=== PATIENT | male | born 1955 | race Caucasian/White ===

== ENCOUNTER 2021-04-28 15:15 | Outpatient (CLI) | payer MEDICARE, OTHER, SELFPAY ==
[2021-04-28 15:31] VITALS: BP 133/82; PULSE 81; TEMP 37.2; O2SAT 96
[2021-04-28 16:01] VITALS: BP 128/87; PULSE 77; O2SAT 98
[2021-04-28 16:17] VITALS: BP 126/86; PULSE 71; O2SAT 97
[2021-04-28 17:03] VITALS: BP 130/79; PULSE 88; O2SAT 98
== END 2021-04-28 17:09 | disposition home or self-care (01) ==
LOC: OPS 15:21
PROVIDERS: PCP Family Medicine; Visit Provider Family Medicine
DX: U07.1 COVID-19 (principal)
CPT/HCPCS: 96365

== ENCOUNTER → 2022-08-09 15:33 | Outpatient (BNVA) | payer MEDICARE, OTHER, SELFPAY | PROVIDERS: PCP Family Medicine; Visit Provider Family Medicine | DX: R97.20 Elevated prostate specific antigen [PSA] (principal) | CPT/HCPCS: 84153 ==

== ENCOUNTER → 2023-06-20 14:43 | Outpatient (BNVA) | payer MEDICARE, OTHER, SELFPAY | PROVIDERS: PCP Family Medicine; Visit Provider Family Medicine | DX: K57.20 Diverticulitis of large intestine with perforation and abscess without bleeding (principal); Z00.00 Encounter for general adult medical examination without abnormal findings | CPT/HCPCS: 80053; 85025; 86140 ==

== ENCOUNTER → 2023-07-11 14:57 | Outpatient (BNVA) | payer MEDICARE, OTHER, SELFPAY | PROVIDERS: PCP Family Medicine; Visit Provider Family Medicine | DX: R00.0 Tachycardia, unspecified (principal); K57.20 Diverticulitis of large intestine with perforation and abscess without bleeding; Z00.00 Encounter for general adult medical examination without abnormal findings | CPT/HCPCS: 80053; 83735; 83880; 84443; 85025; 86140 ==

== ENCOUNTER → 2023-08-08 15:31 | Outpatient (BNVA) | payer MEDICARE, OTHER, SELFPAY | PROVIDERS: PCP Family Medicine; Visit Provider Family Medicine | DX: R50.9 Fever, unspecified (principal) | CPT/HCPCS: 80053; 85025; 86140 ==

== ENCOUNTER → 2024-04-25 12:06 | Outpatient (BNVA) | payer MEDICARE, OTHER, SELFPAY | PROVIDERS: PCP Family Medicine; Visit Provider Family Medicine | DX: E11.9 Type 2 diabetes mellitus without complications (principal); Z00.00 Encounter for general adult medical examination without abnormal findings; R53.83 Other fatigue; R97.20 Elevated prostate specific antigen [PSA] | CPT/HCPCS: 80053; 80061; 83880; 84153; 84443; 85025; 86140 ==

== ENCOUNTER 2024-12-15 10:57 | Inpatient (IN) | payer MEDICARE, OTHER, SELFPAY ==
[2024-12-15] VITALS (30 sets, daily range): BP systolic 106–167; BP diastolic 76–98; PULSE 57–124; RESP 11–24; TEMP 36.4–36.8; O2SAT 87–97; BMI 29.2
--- NOTE | 2024-12-15 11:06 | ECG_ITS ---
[employer] Test Date: 2024-12-15 Pat Name: Yuriy Martinez Department: Room: Gender: Male Relationship Advisor: : 1955 Requested By: Pepe Briseno Order Number: [id number] Janice MD: Donald Logan M.D. Measurements Intervals [place] Rate: 122 P: 0 [place]: 0 QRS: -46 QRSD: 92 T: 55 QT: 296 QTc: 422 Interpretive Statements ATRIAL FIBRILLATION WITH RAPID VENTRICULAR RESPONSE WITH ABERRANT CONDUCTION OR VENTRICULAR PREMATURE COMPLEXES PATTERN CONSISTENT WITH PULMONARY DISEASE LEFT ANTERIOR FASCICULAR BLOCK [QRS AXIS <= -45, QR IN I, RS IN II] MINIMAL VOLTAGE CRITERIA FOR LVH, CONSIDER NORMAL VARIANT [MEETS CRITERIA IN ONE OF: R(aVL), S(V1), R(V5), R(V5/V6)+S(V1)] Compared to ECG 12/22/2017 17:47:10 Ventricular premature complex(es) now present Aberrant conduction of supraventricular beat(s) now present Left anterior fascicular block now present Sinus bradycardia no longer present Electronically Signed On 12-15-2024 14:42:06 CDT by Donald Logan M.D. [email or web address] [id number]
--- NOTE | 2024-12-15 11:32 | XRR_ITS ---
PROCEDURE INFORMATION: Exam: XR Chest Exam date and time: 12/15/2024 12:03 PM Age: 69 years old Clinical indication: Shortness of breath; New onset afib; SOB TECHNIQUE: Imaging protocol: Radiologic exam of the chest. Views: 2 views. COMPARISON: CR XR acute abdomen series [id number] 12/23/2017 6:16 AM FINDINGS: Lungs: Unremarkable. No consolidation. Pleural spaces: Unremarkable. No pleural effusion. No pneumothorax. Heart/Mediastinum: Unremarkable. No cardiomegaly. Vasculature: There is unfolding of the thoracic aorta. There are aortic arch calcifications. Bones/joints: Mild degenerative disease of bilateral acromioclavicular joints. The thoracic spine demonstrates moderate degenerative changes at multiple levels. XR/XR chest 2V* [id number] IMPRESSION: No acute cardiopulmonary process.
[2024-12-15 11:44] LABS: Basophils % 0.5 %; Eosinophils % 0.3 %; Hematocrit 43.5 % (37-53); Lymphocytes # 1.5 10^3/uL (0.8-4.8); Lymphocytes % 16.5 %; Mean Corpuscular HGB Conc 34.7 g/dL (30-55); Mean Corpuscular Hemoglobin 30.5 pg (27-33); Mean Corpuscular Volume 87.9 fl (82-101); Mean Platelet Volume 10.8 fL (7.4-10.4); Monocytes # 0.7 10^3/uL (0.2-0.9); Monocytes % 7.4 %; Neutrophils # 6.58 10^3/uL (1.8-7.7); Neutrophils % 75.1 %; Nucleated Red Blood Cells % 0 %; Platelet Count 257 10^3/cmm (157-399); Red Blood Count 4.95 10^6/uL (3.85-5.65); Red Cell Distribution Width 11.9 % (12.1-15.1); White Blood Count 8.77 10^3/uL (3.29-11.43)
--- NOTE | 2024-12-15 11:48 | W.ED.DIZZY ---
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 The patient denies any chest pain does not report any current palpitations reports no leg swelling or any other associated symptoms. Associated symptoms: Reports palpitations; Denies chest pain, chills, headache(s), malaise, nausea or vomiting Related Data Previous Rx's ?Medication ?Instructions ?Recorded aspirin 81 mg tablet,delayed 81 mg PO DAILY #30 tabs 08/09/22 release (Adult Low Dose Aspirin) tamsulosin 0.4 mg capsule 0.4 mg PO DAILY #30 caps 04/25/24 Allergies Allergy/AdvReac Type Severity Reaction Status Date / Time ciprofloxacin (From Cipro) AdvReac tendon pain Verified 08/08/23 15:17 Review of Systems General: Reports: 10 or more systems reviewed and unremarkable except in HPI and below Const: Denies: fever(s), chills, fatigue or malaise Eyes: Denies: change in vision or blurry vision Card: Reports: palpitations, lightheadedness and pre-syncope; Denies: chest pain Resp: Denies: dyspnea or productive cough GI: Denies: abdominal pain, nausea or vomiting : Denies: flank pain Musc: Denies: extremity pain or extremity swelling Skin/Breast: Denies: rash or pruritus Neuro: Denies: headache(s) Psych: Denies: anxiety or depression Wale/Lymph: Denies: easy bleeding All/Imm: Denies: urticaria, throat swelling or facial swelling PFSH ED PFSH: Social History Smoking and tobacco/nicotine status: unknown if used tobacco/nicotine Physical Exam Const: COMMON NORMALS: no acute distress, patient oriented x3 and healthy appearing HENMT: COMMON NORMALS: normocephalic and atraumatic HEAD & SCALP: normocephalic and atraumatic Eye: COMMON NORMALS: Equal, round and reactive pupils present and EOMs intact bilaterally PUPIL: Yes Equal, round and reactive pupils present Neck/C-Spine: COMMON NORMALS: full ROM, supple and no JVD Lymph: LYMPHATIC: no lymphadenopathy noted Chest: COMMONS NORMALS: normal inspection of the chest and normal palpation of entire chest wall Resp: COMMON NORMALS: normal respiratory effort, No retractions and clear to auscultation bilaterally EFFORT & INSPECTION: Yes able to speak in complete sentences and Yes symmetric chest movement AUSCULTATION: clear to auscultation bilaterally Cardio: COMMON NORMALS: no JVD; negative for regular rate and negative for regular rhythm (Irregularly irregular rhythm rate in the 120s 130s) RATE: abnormal rate RHYTHM: abnormal rhythm (Irregularly irregular rhythm rate in the 120s 130s) GI: COMMON NORMALS: Normal to inspection, nondistended, normoactive bowel sounds present, Soft to palpation and non-tender INSPECTION: Yes normal to inspection PALPATION: Yes Soft to palpation : COMMON NORMALS: Yes no CVA tenderness BLADDER/KIDNEY EXAM: Yes no CVA tenderness Back/Pelvis: COMMON NORMALS: no CVA tenderness Extremity: COMMON NORMALS: normal to inspection and full ROM Neuro: COMMON NORMALS: patient oriented x3, CN's II-XII intact bilaterally, moves all extremities and no focal motor deficits Psych: COMMON NORMALS: mental status grossly normal, Normal thought process present, cooperative and normal affect THOUGHT PROCESS: Normal thought process present Skin: COMMON NORMALS: no rashes or lesions noted GENERAL SKIN EXAM: no rashes or lesions noted Course Vital Signs: Vital signs: Vital Signs Temperature 98.2 F 12/15/24 11:04 Pulse Rate 81 12/15/24 13:47 Respiratory Rate 16 12/15/24 13:47 Blood Pressure 141/94 12/15/24 13:20 Pulse Oximetry 95 12/15/24 13:47 Oxygen Delivery Me thod Room Air 12/15/24 11:04 MDM - Dizziness Medical Decision Making Patient on exam appears to have atrial fibrillation with RVR will be doing a cardiac workup anticipate need for admission patient be started on a Cardizem bolus followed by Cardizem drip will continue to follow. Patient was found to be in heart failure with a mild elevated first troponin and BNP elevated as well as kidney insufficiency. Patient however is now rate controlled into the 90s. Discussed patient's case with Dr. Ramos on-call hospitalist is great except as to the CSU for further assessment and management. Lab Data 12/15/24 11:17 12/15/24 11:17 Radiology Impressions Chest X-Ray 12/15/24 11:32 IMPRESSION: No acute cardiopulmonary process. Laboratory Results WBC 8.77 10^3/uL (3.29-11.43) 12/15/24 11:17 RBC 4.95 10^6/uL (3.85-5.65) 12/15/24 11:17 Hgb 15.10 g/dL (11.27-16.99) 12/15/24 11:17 Hct 43.5 % (37-53) 12/15/24 11:17 MCV 87.9 fl (82-101) 12/15/24 11:17 MCH 30.5 pg (27-33) 12/15/24 11:17 MCHC 34.7 g/dL (30-55) 12/15/24 11:17 RDW 11.9 % (12.1-15.1) L 12/15/24 11:17 Plt Count 257 10^3/cmm (157-399) 12/15/24 11:17 MPV 10.8 fL (7.4-10.4) H 12/15/24 11:17 Neut % (Auto) 75.1 % 12/15/24 11:17 Lymph % (Auto) 16.5 % 12/15/24 11:17 Dukes % (Auto) 7.4 % 12/15/24 11:17 Eos % (Auto) 0.3 % 12/15/24 11:17 Baso % (Auto) 0.5 % 12/15/24 11:17 Neut # (Auto) 6.58 10^3/uL (1.8-7.7) 12/15/24 11:17 Lymph # (Auto) 1.5 10^3/uL (0.8-4.8) 12/15/24 11:17 Dukes # (Auto) 0.7 10^3/uL (0.2-0.9) 12/15/24 11:17 Eos # (Auto) 0.0 10^3/uL (0.0-0.8) 12/15/24 11:17 Baso # (Auto) 0.0 10^3/uL (0.0-0.1) 12/15/24 11:17 Nucleated RBC % (auto) 0 % 12/15/24 11:17 Nucleated RBCs # 0.0 /100WBC 12/15/24 11:17 Sodium 134 mmol/L (136-145) L 12/15/24 11:17 Potassium 4.0 mmol/L (3.5-5.1) 12/15/24 11:17 Chloride 99 mmol/L (98-107) 12/15/24 11:17 Carbon Dioxide 19 mmol/L (22-29) L 12/15/24 11:17 Anion Gap 20.0 (5-19) H 12/15/24 11:17 BUN 22 mg/dL (8-23) 12/15/24 11:17 Creatinine 1.5 mg/dL (0.7-1.2) H 12/15/24 11:17 GFR Calculation 46.4 mL/min (90-130) L 12/15/24 11:17 Glucose 118 mg/dL (65-115) H 12/15/24 11:17 Calculated Osmolality 282 mOsm/kg (285-295) L 12/15/24 11:17 Calcium 9.3 mg/dL (8.5-10.5) 12/15/24 11:17 Total Bilirubin 0.3 mg/dL (0.15-1.2) 12/15/24 11:17 AST 22 U/L (0-40) 12/15/24 11:17 ALT 15 U/L (0-41) 12/15/24 11:17 Alkaline Phosphatase 76 U/L (40-130) 12/15/24 11:17 Troponin T Baseline 32 ng/L (0-15) H 12/15/24 11:17 Troponin T 120 Minute 29.33 ng/L (0-15) H 12/15/24 13:10 Delta Troponin T -2.67 ABS# (0-10) L 12/15/24 13:10 C-Reactive Protein 4.9 mg/L (0.0-4.9) 12/15/24 11:17 NT-Pro-B Natriuret Pep 1114 pg/mL (0-125) H 12/15/24 11:17 Total Protein 7.2 g/dL (6.6-8.7) 12/15/24 11:17 Albumin 4.4 g/dL (3.5-5.2) 12/15/24 11:17 Globulin 2.8 g/dL (1.3-4.6) 12/15/24 11:17 Urine Color Yellow (Yellow) 12/15/24 12:20 Urine Appearance Clear (CLEAR) 12/15/24 12:20 Urine pH 7.0 (5-7) 12/15/24 12:20 Ur Specific [place] 1.018 (1.005-1.030) 12/15/24 12:20 Urine Protein 2+ (Negative) A 12/15/24 12:20 Urine Glucose (UA) Negative (Normal) 12/15/24 12:20 Urine Ketones Trace (Negative) 12/15/24 12:20 Urine Blood Negative (Negative) 12/15/24 12:20 Urine Nitrate Negative (Negative) 12/15/24 12:20 Urine Bilirubin Negative (Negative) 12/15/24 12:20 Urine Urobilinogen 1.0 mg/dL (Negative) 12/15/24 12:20 Ur Leukocyte Esterase Trace (Negative) A 12/15/24 12:20 Urine RBC 0-2 /hpf (0-2) 12/15/24 12:20 Urine WBC 6-10 /hpf (0-5) 12/15/24 12:20 Ur Squamous Epith Cells 0-5 /hpf (0-5) 12/15/24 12:20 Amorphous Sediment Not Reportable 12/15/24 12:20 Urine Bacteria None seen /hpf (NONE) 12/15/24 12:20 Hyaline Casts 29.37 /lpf 12/15/24 12:20 All radiology interpretation(s) finalized by discharge Discharge Plan Discharge Patient Disposition: Placed in Observation Clinical Impression: Atrial fibrillation with RVR, Dehydration, Elevated troponin I level Condition: Stable Prescriptions: No Action aspirin [Adult Low Dose Aspirin] 81 mg tablet,delayed release (DR/EC) 81 mg PO DAILY Qty: 30 5RF tamsulosin 0.4 mg capsule 0.4 mg PO DAILY Qty: 30 11RF Referrals: Quirino Rothman MD [Primary Care Provider] - Print Language: Citizen Of [place] Coding Level of Care Code ED Presales Engineer for Vamshi Gavin
[2024-12-15 11:54] LABS: Troponin(5th) Baseline 32 ng/L (0-15)
[2024-12-15 12:02] LABS: Alanine Aminotransferase 15 U/L (0-41); Albumin Level 4.4 g/dL (3.5-5.2); Alkaline Phosphatase 76 U/L (40-130); Aspartate Amino Transferase 22 U/L (0-40); Blood Urea Nitrogen 22 mg/dL (8-23); C Reactive Protein 4.9 mg/L (0.0-4.9); Calcium 9.3 mg/dL (8.5-10.5); Carbon Dioxide 19 mmol/L (22-29); Chloride 99 mmol/L (98-107); Creatinine Clr Calc Pharmacy 54.7499; Globulin 2.8 g/dL (1.3-4.6); Glomerular Filtration Rate 46.4 mL/min (90-130); Glucose 118 mg/dL (65-115); NT Pro B Type Natriuretic Pept 1114 pg/mL (0-125); Osmolality Calculated 282 mOsm/kg (285-295); Sodium 134 mmol/L (136-145); Total Bilirubin 0.3 mg/dL (0.15-1.2); Total Protein 7.2 g/dL (6.6-8.7)
[2024-12-15] MEDS: sodium chloride 0.9% 1,000 ML 999 ML IV (12:16)
[2024-12-15] MEDS: dilTIAZem 5 mg/mL SDV 5 mL 10 MG IVP (12:16)
[2024-12-15 12:36] LABS: Bilirubin Urine Negative (Negative); Blood Urine Negative (Negative); Glucose Urine UA Negative (Normal); Ketones Urine Trace (Negative); Leukocyte Esterase Urine Trace (Negative); Nitrate Urine Negative (Negative); Protein Urine 2+ (Negative); Specific Gravity, Urine 1.018 (1.005-1.030); Urine Appearance Clear (CLEAR); Urine Color Yellow (Yellow)
[2024-12-15 12:41] LABS: Add Urine Microscopic? YES; Bacteria Urine None Seen /hpf; Hyaline Casts Urine 29.37 /lpf; RBC Urine 0-2 /hpf (0-2); Squamous Epithelial Cell Urine 0-5 /hpf (0-5)
[2024-12-15 12:51] LABS: UA Slide Review UA Slide Review Perf
--- NOTE | 2024-12-15 13:08 | ECG_ITS ---
[employer] Test Date: 2024-12-15 Pat Name: Yuriy Martinez Department: Room: 103 Gender: Male Doctor Of Veterinary Medicine: : 1955 Requested By: Pepe Briseno Order Number: [id number] Janice MD: Donald Logan M.D. Measurements Intervals [place] Rate: 86 P: 0 MS: 0 QRS: -40 QRSD: 98 T: 8 QT: 374 QTc: 448 Interpretive Statements ATRIAL FIBRILLATION LEFT AXIS DEVIATION [QRS AXIS < -30] PATTERN CONSISTENT WITH PULMONARY DISEASE MINIMAL VOLTAGE CRITERIA FOR LVH, CONSIDER NORMAL VARIANT [MEETS CRITERIA IN ONE OF: R(aVL), S(V1), R(V5), R(V5/V6)+S(V1)] Compared to ECG 12/15/2024 11:06:51 Left-axis deviation now present Ventricular premature complex(es) no longer present Aberrant conduction of supraventricular beat(s) no longer present Left anterior fascicular block no longer present Electronically Signed On 12-16-2024 23:03:40 CDT by Donald Logan M.D. [email or web address] [id number]
[2024-12-15 13:41] LABS: Troponin 5 2HR 29.33 ng/L (0-15)
[2024-12-15 13:45] LABS: Troponin 5 2HR Delta -2.67 ABS# (0-10)
--- NOTE | 2024-12-15 14:26 | P.HP_ITS ---
Providers/Chief Complaint 2 Primary Care Provider: Quirino Rothman MD Chief Complaint: dizzy/weak History of Present Illness Yuriy Martinez is a 69 year old male With past medical history of diverticulitis of colon with perforation, elevated PSA presented to the hospital today for complaint of dizziness. 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 Denies any chest pain shortness of breath at this time. Denies any leg swelling. His only complaint was dizziness and near syncope. Family history positive for cardiac issues in his mother and father who are now . Patient takes a baby aspirin at home. Patient has hx of bph Medications/Allergies Home Medications ?Medication ?Instructions ?Recorded ?Confirmed ?Last Taken ?Type aspirin 81 mg tablet,delayed 81 mg PO DAILY #30 tabs 1 10/09/21 12/15/24 12/15/24 Rx release (Adult Low Dose Aspirin) tamsulosin 0.4 mg capsule 0.4 mg PO DAILY #30 caps 12/15/24 12/15/24 Rx Allergies Allergy/AdvReac Type Severity Reaction Status Date / Time ciprofloxacin (From Cipro) AdvReac tendon pain Verified 08/08/23 15:17 PFSH Acute 2 PFSH: Social History Smoking and tobacco/nicotine status: unknown if used tobacco/nicotine Vitals/I&O/Wt Last Vital Signs Temp 98.2 F 12/15/24 11:04 Pulse 81 12/15/24 13:47 Resp 16 12/15/24 13:47 BP 141/94 12/15/24 13:20 Pulse Ox 95 12/15/24 13:47 O2 Del Method Room Air 12/15/24 11:04 Weight last 48 hrs Weight 95.254 kg Physical Exam 2 Narrative: General: Alert oriented x3, patient seen sitting up in bed appearing comfortable at this time. HEENT: Normocephalic, atraumatic, EOMI, reading room air. Cardio: Irregularly irregular, tachycardic. Respiratory: Good bilateral air entry, no wheezes no rhonchi appreciated GI: Abdomen soft, nontender, nondistended, bowel sounds + Behavior: Appropriate and cooperative Extremities: Trace edema bilateral lower extremity Data 12/16/24 04:56 12/16/24 04:56 A&P Assessment and plan (1) Atrial fibrillation with RVR: (2) Tachycardia: (3) KARINA (acute kidney injury): (4) New onset of congestive heart failure: (5) Dizziness: (6) Near syncope: (7) Elevated troponin I level: Plan #New onset atrial fibrillation #New onset heart failure #Dizziness near syncope most likely secondary to above #KARINA #Mildly elevated troponin #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 Baseline unknown but most likely normal ? Received Cardizem 20 IV push and Cardizem drip was started. continue drip at this time ? start heparin drip for AC ? Check echocardiogram ? Elevated BNP 1100 however clinically patient appears dehydrated. ? 1 L normal saline bolus given in ER. ? Hold off on further fluids. ? Await 2-hour 6-hour troponin ? Will likely require cardiology consult once echo has resulted. ? Dizziness near syncope most likely secondary to new onset atrial fibrillation ? Continue to monitor patient on telemetry at this time -Keep magnesium greater than 2, potassium greater than 4. Full code Due to prophylaxis: Heparin SQ twice daily. PDMP PDMP Reviewed: Not Reviewed Attestations 2 Medical Necessity Statement*: No was atrial fibrillation requiring Cardizem drip at this time. Diagnoses Atrial fibrillation with RVR I48.91 Tachycardia R00.0 KARINA (acute kidney injury) N17.9 New onset of congestive heart failure I50.9 Dizziness R42 Near syncope R55 Elevated troponin I level R79.89
[2024-12-15 14:51] LABS: Estmated Average Glucose 108; Hemoglobin A1C 5.4 % (4.0-6.0)
[2024-12-15 15:00] LABS: Chol HDL Ratio 5.95 mg/dL (1.0-5.00); Cholesterol 232 mg/dL (0-200); HDL Cholesterol 39 mg/dL (60-100); LDL Cholesterol Calculated 155 mg/dL (50-129); LDL HDL Ratio 3.97 RATIO (0.00-3.22); Thyroid Stimulating Hormone 3.02 uIU/mL (0.27-4.20); Triglycerides 191 mg/dL (0-150)
[2024-12-15] MEDS: heparin 5,000 unit/mL INJ 1 mL 5000 UNIT SUBCUT (15:29)
[2024-12-15] MEDS: dilTIAZem 100 MG in sodium chloride 0.9% (add-van) 100 ML IV (15:40)
[2024-12-15] MEDS: heparin drip 25,000 UNIT/500 ML PREMIX 27 UNIT IV (16:38)
[2024-12-15] MEDS: atorvastatin 40 mg Tablet PO (21:43)
[2024-12-15 22:52] LABS: Partial Thromboplastin Time 80.1 SECONDS (23.9-36.7)
[2024-12-16] VITALS (33 sets, daily range): BP systolic 92–139; BP diastolic 62–87; PULSE 61–100; RESP 9–23; TEMP 36.4–36.8; O2SAT 86–98
[2024-12-16 05:26] LABS: Basophils % 0.5 %; Eosinophils # 0.1 10^3/uL (0.0-0.8); Hematocrit 41.5 % (37-53); Lymphocytes # 1.6 10^3/uL (0.8-4.8); Lymphocytes % 24.7 %; Mean Corpuscular HGB Conc 34.2 g/dL (30-55); Mean Corpuscular Hemoglobin 30.7 pg (27-33); Mean Corpuscular Volume 89.8 fl (82-101); Mean Platelet Volume 10.7 fL (7.4-10.4); Monocytes # 0.5 10^3/uL (0.2-0.9); Monocytes % 8.3 %; Neutrophils # 4.09 10^3/uL (1.8-7.7); Neutrophils % 65.2 %; Nucleated Red Blood Cells % 0 %; Platelet Count 212 10^3/cmm (157-399); Red Blood Count 4.62 10^6/uL (3.85-5.65); Red Cell Distribution Width 12.1 % (12.1-15.1); White Blood Count 6.27 10^3/uL (3.29-11.43)
[2024-12-16 05:43] LABS: Alanine Aminotransferase 14 U/L (0-41); Albumin Level 3.8 g/dL (3.5-5.2); Alkaline Phosphatase 64 U/L (40-130); Anion Gap 15.1 (5-19); Aspartate Amino Transferase 20 U/L (0-40); Blood Urea Nitrogen 19 mg/dL (8-23); Calcium 8.9 mg/dL (8.5-10.5); Carbon Dioxide 22 mmol/L (22-29); Chloride 105 mmol/L (98-107); Creatinine Clr Calc Pharmacy 92.7286; Globulin 2.7 g/dL (1.3-4.6); Glomerular Filtration Rate 83.7 mL/min (90-130); Glucose 101 mg/dL (65-115); Magnesium 1.9 mg/dL (1.7-2.3); Osmolality Calculated 288 mOsm/kg (285-295); Potassium 4.1 mmol/L (3.5-5.1); Sodium 138 mmol/L (136-145); Total Bilirubin 0.5 mg/dL (0.15-1.2); Total Protein 6.5 g/dL (6.6-8.7)
[2024-12-16] MEDS: pantoprazole DR 40 mg Tablet PO (08:58)
[2024-12-16] MEDS: aspirin 81 mg EC Tablet PO (08:58)
--- NOTE | 2024-12-16 10:05 | ECG_ITS ---
[facility] Date[facility]24-12[facility]16 Pat Name: Yuriy Martinez Department: Room: 103 Gender: Male Loss Prevention Specialist: : 1955 Requested By: Pilar Ramos Order Number: [id number] Janice MD: Donald Logan M.D. Measurements Intervals [place] Rate: 79 P: 0 [place]: 0 QRS: -40 QRSD: 93 T: 6 QT: 348 QTc: 400 Interpretive Statements ATRIAL FIBRILLATION LEFT AXIS DEVIATION [QRS AXIS < -30] PATTERN CONSISTENT WITH PULMONARY DISEASE MINIMAL VOLTAGE CRITERIA FOR LVH, CONSIDER NORMAL VARIANT [MEETS CRITERIA IN ONE OF: R(aVL), S(V1), R(V5), R(V5/V6)+S(V1)] Compared to ECG 12/15/2024 14:18:28 No significant changes Electronically Signed On 12-16-2024 22:49:25 CDT by Donald Logan M.D. [email or web address] [id number]
[2024-12-16 12:34] LABS: Partial Thromboplastin Time 79.5 SECONDS (23.9-36.7)
--- NOTE | 2024-12-16 12:59 | ECG_ITS ---
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 Interpretive Statements Lung unchanged pre/post procedure; Intraprocedure shortess of breath; Symptoms resoled by discharge [email or web address] [id number]
--- NOTE | 2024-12-16 13:22 | P.PN_ITS ---
Subjective 2 Subjective: seen this morning on cardizem drip at 7.5 remains in atrial flutter Vitals/I&O/Wt Last Vital Signs Temp 97.6 F 12/16/24 11:46 Pulse 81 12/16/24 11:46 Resp 22 H 12/16/24 11:46 BP 123/73 12/16/24 11:46 Pulse Ox 96 12/16/24 11:46 O2 Del Method Room Air 12/16/24 11:46 12/15/24 12/16/24 12/16/24 22:59 06:59 14:59 Intake Total 1437.908 / 1437.908 185.833 / 1623.741 756.033 / 756.033 Output Total 400 / 400 700 / 1100 Balance 1037.908 / 1037.908 -514.167 / 523.741 756.033 / 756.033 Weight last 48 hrs Weight 98.628 kg Weight 95.254 kg Physical Exam 2 Narrative: General: Alert oriented x3, patient seen sitting up in bed appearing comfortable at this time. HEENT: Normocephalic, atraumatic, EOMI, reading room air. Cardio: Irregularly irregular, tachycardic. 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 Baseline unknown but most likely normal ? Received Cardizem 20 IV push and Cardizem drip was started. continue drip at this time ? start heparin drip for AC ? Check echocardiogram ? Elevated BNP 1100 however clinically patient appears dehydrated. ? 1 L normal saline bolus given in ER. ? Hold off on further fluids. ? Await 2-hour 6-hour troponin ? Will likely require cardiology consult once echo has resulted. ? Dizziness near syncope most likely secondary to new onset atrial fibrillation ? Continue to monitor patient on telemetry at this time -Keep magnesium greater than 2, potassium greater than 4. Full code Due to prophylaxis: Heparin ggt 12/16/2024 seen this morning remains in atrial flutter echo resulted, reviewed, EF normal plan for stress test lexiscan in AM potential plan for cardioversion after stress test cardiology planning for class 1C medication cardio consulted pt symptoms have improved continue cardizem ggt at this time NPO at midnight for stress test in AM PDMP PDMP Reviewed: Not Reviewed Attestations 2 Medical Necessity Statement*: atrial flutter needing cardizem gtt, plan for stress test and tentatively cardioversion going forward. may need another 24-48 hour stay Diagnoses Tachycardia R00.0 KARINA (acute kidney injury) N17.9 Dizziness R42 Near syncope R55 Elevated troponin I level R79.89 Atrial flutter with rapid ventricular response I48.92
--- NOTE | 2024-12-16 13:27 | P.CONIM_ITS ---
Providers/Reason For Consult 2 Consulting Physician/Specialty*: JENNIE Logan MD/cardiology Reason for Consult*: Patient with new onset of atrial flutter Requesting Physician: Dr. Ramos Attending Physician: Pilar Ramos MD Primary Care Provider: Quirino Rothman MD History of Present Illness History of Present Illness Yuriy Martinez is a 69 year old male with no significant past medical history, is admitted to hospital with complaints of shortness of breath and dizziness started 24 hours ago. He was found to be in atrial flutter/ atrial fibrillation with rapid ventricular rate. He was started on IV Cardizem. The rate is getting under control. Currently he seems to be in atrial fibrillation with a controlled ventricular response rate. According the patient, he has been in his baseline state of health up until yesterday morning when this happened. 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 He did not have any chest pain or chest tightness. No palpitation. He was mainly complaining of dizziness and shortness of breath. No orthopnea or PND. No fever, chills or cough. No other associated symptoms. He has no previous history for any cardiac arrhythmia. No history for coronary artery disease, myocardial infarction or congestive heart failure. No history for hypertension, diabetes, dyslipidemia or peripheral artery disease. His father had congestive heart failure and had some type of heart problem in his 50s but did not have any documented arrhythmias. He had a permanent pacer implantation in his 70s. His younger brother had PCI at the age of 65. No other relevant family history. Denies any history of alcohol abuse, smoking abuse or any other substance abuse. Review of Systems 2 Narrative: CONSTITUTIONAL: No fever or chills. EYES: No blurring of vision or other visual disturbances lately. ENT: No hoarseness of voice, auditory disturbances or sore throat. CARDIOVASCULAR: As mentioned above. RESPIRATORY: No significant cough. Has been having some shortness of breath with the current episode GASTROINTESTINAL: No hematemesis or melena. GENITOURINARY: No dysuria or hematuria. INTEGUMENTARY: No skin rashes or history of skin cancer. NEURO: Was having dizziness with shortness of breath but currently resolved PSYCHIATRIC: No history of psychosis or major depression. HEMATOLOGIC: No bleeding disorders or significant anemia. ENDOCRINE: No history of polyuria or polydipsia. MUSCULOSKELETAL: No recent joint pain or swelling. ALLERGY/IMMUNOLOGY: As mentioned above. Medications/Allergies Home Medications ?Medication ?Instructions ?Recorded ?Confirmed ?Last Taken ?Type aspirin 81 mg tablet,delayed 81 mg PO DAILY #30 tabs 1 10/09/21 12/15/24 12/15/24 Rx release (Adult Low Dose Aspirin) tamsulosin 0.4 mg capsule 0.4 mg PO DAILY #30 caps 12/15/24 12/15/24 Rx Allergies Allergy/AdvReac Type Severity Reaction Status Date / Time ciprofloxacin (From Cipro) AdvReac tendon pain Verified 08/08/23 15:17 Current Medications Generic Name Dose Route Start Last Admin Trade Name Pawelq PRN Reason Stop Dose Admin Aspirin 81 mg 12/16/24 09:00 12/16/24 08:58 Aspirin 81 Mg Ec Tablet PO 81 mg DAILY DEMOND Administration Atorvastatin Calcium 40 mg 12/15/24 21:00 12/15/24 21:43 Atorvastatin 40 Mg Tablet PO 40 mg BEDTIME DEMOND Administration Diltiazem HCl 100 mg/ Sodium 100 mls @ 0 mls/hr 12/15/24 11:45 12/16/24 12:51 Chloride IV 10 mg/hr .Q0M DEMOND 10 mls/hr Titration Protocol Per Protocol Heparin Sodium/Sodium Chloride 25,000 unit in 500 mls @ 0 mls/hr 12/15/24 16:15 12/16/24 12:43 Heparin Drip IV 8.92 unit/kg/hr CONT DEMOND 17 mls/hr Titration Protocol Per Protocol Pantoprazole Sodium 40 mg 12/16/24 09:00 12/16/24 08:[address] 40 Mg Tablet PO 40 mg DAILY DEMOND Administration PFSH Acute 2 PFSH: Social History Smoking and tobacco/nicotine status: unknown if used tobacco/nicotine Vitals/I&O/Wt Last Vital Signs Temp 97.6 F 12/16/24 11:46 Pulse 81 12/16/24 11:46 Resp 22 H 12/16/24 11:46 BP 123/73 12/16/24 11:46 Pulse Ox 96 12/16/24 11:46 O2 Del Method Room Air 12/16/24 11:46 12/15/24 12/16/24 12/16/24 22:59 06:59 14:59 Intake Total 1437.908 / 1437.908 185.833 / 1623.741 756.033 / 756.033 Output Total 400 / 400 700 / 1100 Balance 1037.908 / 1037.908 -514.167 / 523.741 756.033 / 756.033 Weight last 48 hrs Weight 217 lb 7 oz Weight 210 lb Physical Exam 2 Narrative: GENERAL: The patient is alert and oriented times three. Not in any acute distress. HEENT: No significant pallor, icterus or lymphadenopathy.Oral cavity: There are no mucous membrane lesions. NECK: Trachea appears to be central. No masses noted. No JVD or thyromegaly appreciated. RESPIRATORY: Chest is symmetrical. No intercostals muscle retraction or any accessory muscle activation. There is no chest wall tenderness. Breath sounds are heard bilaterally. No rales or rhonchi heard. No evidence of any consolidation. BREASTS: Deferred. HEART: The heart sounds are normal. No S3 or S4. No significant murmurs. No pericardial rub ABDOMEN: No vessel pulsations or distention. No tenderness. No organomegaly appreciated. Bowel sounds are normally heard. : Deferred. RECTAL: Deferred. LYMPHATIC: No lymphadenopathy noted in the neck. EXTREMITIES: No edema or cyanosis. No clubbing. MUSCULOSKELETAL: No acute joint deformities or swelling SKIN: There are no significant rashes or ecchymosis NEUROPSYCHIATRIC: The patient is alert and oriented x3. Appears to be in a good mood. No tremors or rigidity noted. Data 12/16/24 04:56 12/16/24 04:56 Other Labs: Laboratory Last Values WBC 6.27 10^3/uL (3.29-11.43) 12/16/24 04:56 RBC 4.62 10^6/uL (3.85-5.65) 12/16/24 04:56 Hgb 14.20 g/dL (11.27-16.99) 12/16/24 04:56 Hct 41.5 % (37-53) 12/16/24 04:56 MCV 89.8 fl (82-101) 12/16/24 04:56 MCH 30.7 pg (27-33) 12/16/24 04:56 MCHC 34.2 g/dL (30-55) 12/16/24 04:56 RDW 12.1 % (12.1-15.1) 12/16/24 04:56 Plt Count 212 10^3/cmm (157-399) 12/16/24 04:56 MPV 10.7 fL (7.4-10.4) H 12/16/24 04:56 Neut % (Auto) 65.2 % 12/16/24 04:56 Lymph % (Auto) 24.7 % 12/16/24 04:56 [place] % (Auto) 8.3 % 12/16/24 04:56 Eos % (Auto) 1.0 % 12/16/24 04:56 Baso % (Auto) 0.5 % 12/16/24 04:56 Neut # (Auto) 4.09 10^3/uL (1.8-7.7) 12/16/24 04:56 Lymph # (Auto) 1.6 10^3/uL (0.8-4.8) 12/16/24 04:56 [place] # (Auto) 0.5 10^3/uL (0.2-0.9) 12/16/24 04:56 Eos # (Auto) 0.1 10^3/uL (0.0-0.8) 12/16/24 04:56 Baso # (Auto) 0.0 10^3/uL (0.0-0.1) 12/16/24 04:56 Nucleated RBC % (auto) 0 % 12/16/24 04:56 Nucleated RBCs # 0.0 /100WBC 12/16/24 04:56 APTT 60.3 SECONDS (23.9-36.7) H 12/16/24 18:03 Sodium 138 mmol/L (136-145) 12/16/24 04:56 Potassium 4.1 mmol/L (3.5-5.1) 12/16/24 04:56 Chloride 105 mmol/L (98-107) 12/16/24 04:56 Carbon Dioxide 22 mmol/L (22-29) 12/16/24 04:56 Anion Gap 15.1 (5-19) 12/16/24 04:56 BUN 19 mg/dL (8-23) 12/16/24 04:56 Creatinine 0.9 mg/dL (0.7-1.2) 12/16/24 04:56 GFR Calculation 83.7 mL/min (90-130) L 12/16/24 04:56 Glucose 101 mg/dL (65-115) 12/16/24 04:56 Estimat Average Glucose 108 12/15/24 11:17 Hemoglobin A1c 5.4 % (4.0-6.0) 12/15/24 11:17 Calculated Osmolality 288 mOsm/kg (285-295) 12/16/24 04:56 Calcium 8.9 mg/dL (8.5-10.5) 12/16/24 04:56 Magnesium 1.9 mg/dL (1.7-2.3) 12/16/24 04:56 Total Bilirubin 0.5 mg/dL (0.15-1.2) 12/16/24 04:56 AST 20 U/L (0-40) 12/16/24 04:56 ALT 14 U/L (0-41) 12/16/24 04:56 Alkaline Phosphatase 64 U/L (40-130) 12/16/24 04:56 Troponin T Baseline 32 ng/L (0-15) H 12/15/24 11:17 Troponin T 120 Minute 29.33 ng/L (0-15) H 12/15/24 13:10 Delta Troponin T -2.67 ABS# (0-10) L 12/15/24 13:10 Troponin T Hi Sens 6Hr 22.50 ng/L (0-15) H 12/15/24 17:32 Troponin T Hi Sens 6Hr Delta -9.50 ng/L (0-12) L 12/15/24 17:32 C-Reactive Protein 4.9 mg/L (0.0-4.9) 12/15/24 11:17 NT-Pro-B Natriuret Pep 1114 pg/mL (0-125) H 12/15/24 11:17 Total Protein 6.5 g/dL (6.6-8.7) L 12/16/24 04:56 Albumin 3.8 g/dL (3.5-5.2) 12/16/24 04:56 Globulin 2.7 g/dL (1.3-4.6) 12/16/24 04:56 Triglycerides 191 mg/dL (0-150) H 12/15/24 13:10 Cholesterol 232 mg/dL (0-200) H 12/15/24 13:10 LDL Cholesterol, Calc 155 mg/dL (50-129) H 12/15/24 13:10 HDL Cholesterol 39 mg/dL (60-100) L 12/15/24 13:10 LDL/HDL Ratio 3.97 RATIO (0.00-3.22) H 12/15/24 13:10 Cholesterol/HDL Ratio 5.95 mg/dL (1.0-5.00) H 12/15/24 13:10 TSH 3.02 uIU/mL (0.27-4.20) 12/15/24 13:10 Urine Color Yellow (Yellow) 12/15/24 12:20 Urine Appearance Clear (CLEAR) 12/15/24 12:20 Urine pH 7.0 (5-7) 12/15/24 12:20 Ur Specific [place] 1.018 (1.005-1.030) 12/15/24 12:20 Urine Protein 2+ (Negative) A 12/15/24 12:20 Urine Glucose (UA) Negative (Normal) 12/15/24 12:20 Urine Ketones Trace (Negative) 12/15/24 12:20 Urine Blood Negative (Negative) 12/15/24 12:20 Urine Nitrate Negative (Negative) 12/15/24 12:20 Urine Bilirubin Negative (Negative) 12/15/24 12:20 Urine Urobilinogen 1.0 mg/dL (Negative) 12/15/24 12:20 Ur Leukocyte Esterase Trace (Negative) A 12/15/24 12:20 Urine RBC 0-2 /hpf (0-2) 12/15/24 12:20 Urine WBC 6-10 /hpf (0-5) 12/15/24 12:20 Ur Squamous Epith Cells 0-5 /hpf (0-5) 12/15/24 12:20 Amorphous Sediment Not Reportable 12/15/24 12:20 Urine Bacteria None seen /hpf (NONE) 12/15/24 12:20 Hyaline Casts 29.37 /lpf 12/15/24 12:20 Other data: Normal left ventricular size and systolic function, EF 58% . Mild left ventricular hypertrophy. No regional wall motion abnormalities. Trace to mild mitral valve regurgitation. Mild tricuspid valve regurgitation. Estimated pulmonary artery peak systolic pressure 27 mmHg There is no pericardial effusion. There are no intracardiac masses. No similar previous studies are available for comparison A&P Assessment and plan (1) Atrial fibrillation with RVR: Etiology is not clear. No evidence of any myocardial ischemia or injury. His LV function is normal. No significant valvular lesions. Found to have mild tricuspid regurgitation. Patient is on IV Cardizem. Also on IV heparin. (2) New onset of congestive heart failure: Patient had evidence of mild congestive heart failure. Most likely related to the arrhythmia. Currently he has no evidence of cardiac decompensation. Oxygenation is good in room air. (3) Dizziness: Most likely from the arrhythmia. Currently it is resolved. (4) SOB (shortness of breath): Possibly from the atrial fibrillation/flutter. Currently it is resolved. LV function is normal by echocardiogram. (5) Dyslipidemia: Patient is on a statin drug. This may be continued. Plan For further evaluation of the patient's tachycardia status, a Myocardial perfusion imaging would be appropriate. I may go ahead and schedule the patient for Lexiscan/sestamibi/sestamibi stress in the morning. If there is no evidence of ischemia, I may start him on an antiarrhythmic drug. Consider cardioversion afterwards. Patient also may benefit from long-term oral anticoagulation patient may be decided after the stress test Continue on the other current medications at this time. Thank you for the opportunity to eval this patient make these recommendations PDMP PDMP Reviewed: Not Reviewed Consult Attestations 2 Medical Necessity Statement: Patient requires continued hospital stay for close monitoring and further management Coding Level of Care Code 17754 Diagnoses Atrial fibrillation with RVR I48.91 New onset of congestive heart failure I50.9 Dizziness R42 SOB (shortness of breath) R06.02 Dyslipidemia E78.5
[2024-12-16] MEDS: heparin drip 25,000 UNIT/500 ML PREMIX 17 UNIT IV (14:08)
--- NOTE | 2024-12-16 14:51 | USCV_ITS ---
Yuriy Martinez Age: 69 Gender: M : 1955 Exam Date: 12/16/2024 07:30 Ordering Phys: Pilar Ramos MD Technologist: Jay Lema [place] [facility] [place]: afib BP: 127 / 86 HR: 81 Rhythm: Atrial fibrillation Technical Quality: Adequate MEASUREMENTS (Male / Female) Normal Values 2D ECHO LV Diastolic Diameter PLAX 4.5 cm 4.2 - 5.9 / 3.9 - 5.3 cm IVS Diastolic Thickness 1.3 cm 0.6 - 1.0 / 0.6 - 0.9 cm IVS Systolic Thickness 1.7 cm LVPW Diastolic Thickness 1.9 cm 0.6 - 1.0 / 0.6 - 0.9 cm LVPW Systolic Thickness 2.4 cm LVOT Diameter 2.1 cm LV Ejection Fraction 2D Teich 41.8 % LV Ejection Fraction MOD 4C 58.6 % LV Ejection Fraction MOD 2C 57.2 % LV Ejection Fraction 2C AL 60.6 % LA Diameter 4.0 cm RA Systolic Volume 4C AL 28.6 ml RA Systolic Volume 4C MOD 28.9 ml LA Sys Volume AL 34.0 cm cubed LA Sys Volume Index AL 15.2 cm cubed/m squared Aorta at Sinotubular Diameter 2.5 cm IVC Diameter 1.8 cm M-MODE LA Ao Ratio MM 1.1 AV Cusp Separation MM 2.1 cm DOPPLER AV Peak Velocity 102.0 cm/s LVOT Peak Velocity 78.0 cm/s AV Area Cont Eq vti 2.3 cm squared AV Area Cont Eq pk 2.6 cm squared MV Peak Velocity 80.0 cm/s MV Area PHT 5.5 cm squared Mitral E to A Ratio 3.2 TR Peak Velocity 246.0 cm/s TR Peak Gradient 24.2 mmHg TR Mean Velocity 194.0 cm/s TR Mean Gradient 15.8 mmHg TR Velocity Time Integral 64.1 cm PV Peak Velocity 66.3 cm/s RV Ejection Time 0.3 s FINDINGS Left Ventricle Normal left ventricular size and systolic function, EF 58% . Mild left ventricular hypertrophy. No regional wall motion abnormalities. Right Ventricle The right ventricle is normal in size and function. Right Atrium The right atrium is normal in size. Left Atrium The left atrium is normal in size. Mitral Valve Trace to mild mitral valve regurgitation. Aortic Valve No gross abnormalities no Tricuspid Valve Mild tricuspid valve regurgitation. Pulmonic Valve Pulmonic valve not well visualized. Pericardium Normal pericardium without effusion. Aorta Normal ascending aorta dimension. IVC Inferior vena cava not visualized. CONCLUSIONS Normal left ventricular size and systolic function, EF 58% . Mild left ventricular hypertrophy. No regional wall motion abnormalities. Trace to mild mitral valve regurgitation. Mild tricuspid valve regurgitation. Estimated pulmonary artery peak systolic pressure 27 mmHg There is no pericardial effusion. There are no intracardiac masses. No similar previous studies are available for comparison Dr Donald Logan MD [facility] (Electronically Signed) Final Date: 16 December 2024 09:29 S
[2024-12-16] MEDS: dilTIAZem 100 MG in sodium chloride 0.9% (add-van) 100 ML 7.5 MG IV (15:24)
[2024-12-16 18:24] LABS: Partial Thromboplastin Time 60.3 SECONDS (23.9-36.7)
[2024-12-16] MEDS: atorvastatin 40 mg Tablet PO (20:12)
[2024-12-17] VITALS (22 sets, daily range): BP systolic 101–146; BP diastolic 63–109; PULSE 59–105; RESP 7–26; TEMP 36.3–36.6; O2SAT 90–99
[2024-12-17 00:57] LABS: Partial Thromboplastin Time 62.4 SECONDS (23.9-36.7)
[2024-12-17 01:20] LABS: Basophils % 0.6 %; Eosinophils # 0.1 10^3/uL (0.0-0.8); Eosinophils % 1.3 %; Hematocrit 42.1 % (37-53); Lymphocytes # 1.9 10^3/uL (0.8-4.8); Lymphocytes % 30.5 %; Mean Corpuscular HGB Conc 32.5 g/dL (30-55); Mean Corpuscular Hemoglobin 30.3 pg (27-33); Mean Corpuscular Volume 93.1 fl (82-101); Monocytes # 0.5 10^3/uL (0.2-0.9); Monocytes % 8.5 %; Neutrophils # 3.74 10^3/uL (1.8-7.7); Neutrophils % 58.8 %; Nucleated Red Blood Cells % 0 %; Platelet Count 215 10^3/cmm (157-399); Red Blood Count 4.52 10^6/uL (3.85-5.65); Red Cell Distribution Width 12.2 % (12.1-15.1); White Blood Count 6.36 10^3/uL (3.29-11.43)
[2024-12-17 01:29] LABS: Anion Gap 14.2 (5-19); Blood Urea Nitrogen 18 mg/dL (8-23); Carbon Dioxide 23 mmol/L (22-29); Chloride 106 mmol/L (98-107); Creatinine Clr Calc Pharmacy 83.4558; Glomerular Filtration Rate 74.1 mL/min (90-130); Glucose 97 mg/dL (65-115); Magnesium 1.8 mg/dL (1.7-2.3); Osmolality Calculated 290 mOsm/kg (285-295); Potassium 4.2 mmol/L (3.5-5.1); Sodium 139 mmol/L (136-145)
--- NOTE | 2024-12-17 05:30 | NMCV_ITS ---
NM aye perf SPECT r/s* [id number] Yuriy Martinez Age: 69 Gender: M : 1955 Exam Date: 12/17/2024 06:37 Ordering Phys: Donald Logan MD ([email or web address]) Technologist: DAVID Jacome Exam Location: [facility] Indications: CP STRESS TEST [facility] IMAGE PROTOCOL Rest/Stress 1 Lexiscan Day Radiopharmaceutical Dose (mCi) Administration Site Administered by Rest: Tc-99m 10.6 IV Lynn Domingo [employer]PERATOR Sestamibi Stress:Tc-99m 33 IV Lynn Trejogle, [employer] OPERATOR Sestamibi Rest: 17-Dec-2024 60 Discovery 630 Stress: 17-Dec-2024 30 Discovery 630 0.4mg Lexiscan. Images obtained in supine and prone position. SPECT RESULTS Technical Quality: Good Raw Data Analysis: Normal Image Corrections: No attenuation or motion correction applied Summed Stress Score: 1 Summed Rest Score: 7 Summed Difference Score: 0 PERFUSION FINDINGS Patchy areas of decreased tracer uptake were noted in the inferior, inferolateral, inferoseptal regions. And apical regions. No significant reversibility was noted in these areas. FUNCTIONAL RESULTS (calculated via Gated SPECT) Stress Image LV EF (%): 55 Stress EDV (mL):111 TID: 1.09 Stress ESV (mL):50 FUNCTIONAL FINDINGS: Segmental wall motion analysis revealing no gross wall motion abnormalities IMPRESSIONS 1. Myocardial perfusion imaging revealing patchy areas of persistent decreased tracer uptake in the inferior, inferoseptal, inferolateral and apical regions suggesting myocardial scarring versus hydration artifact. 2. Normal LV ejection fraction 55%. 3. LV wall motion analysis revealing no gross wall motion abnormalities. 4. Normal LV volume. Low probability for coronary ischemia, based on the above findings Dr Donald Logan MD [facility] (Electronically Signed) Final Date: 17 December 2024 09:13 S
--- NOTE | 2024-12-17 06:39 | PC.NURSE ---
Patient off unit for stress test. Heparin paused at this time but will resume when patient returns.
[2024-12-17] MEDS: regadenoson 0.4 Mg/5 ml Syringe IVP (07:03)
--- NOTE | 2024-12-17 07:29 | PC.NURSE ---
pt is off unit and is having cardiac stress test at this moment. Ptt draw is held for now.
[2024-12-17] MEDS: pantoprazole DR 40 mg Tablet PO (08:31)
[2024-12-17] MEDS: aspirin 81 mg EC Tablet PO (08:31)
--- NOTE | 2024-12-17 08:51 | PC.NURSE ---
Pt came back from cardiac stress test pt Hr ranges from upper 120s to 90a=s, afib. Cardizem drip restarted per protocol 5 mg/min. Pt is having his breakfast at this time. BP-143/107.
[2024-12-17 09:02] LABS: Partial Thromboplastin Time 36.7 SECONDS (23.9-36.7)
--- NOTE | 2024-12-17 09:13 | P.PN_ITS ---
Subjective 2 Subjective: patient had the Myocardial perfusion imaging today.. Overall the Perfusion scan is normal. Medications: Medication Review Details: Current Medications Acetaminophen (Acetaminophen 325 Mg Tablet) 650 mg PO Q6H PRN PRN Reason: Mild/Mod Pain Or Temp >/= 101 Aminophylline (Aminophylline 25 Mg/Ml Sdv 20 Ml) 25 mg IVP Q2M PRN PRN Reason: see dose instructions Stop: 12/18/24 06:21 Aspirin (Aspirin 81 Mg Ec Tablet) 81 mg PO DAILY [facility] Last Admin: 12/17/24 08:31 Dose: 81 mg Atorvastatin Calcium (Atorvastatin 40 Mg Tablet) 40 mg PO BEDTIME [facility] Last Admin: 12/16/24 20:12 Dose: 40 mg Diltiazem HCl 100 mg/ Sodium (Chloride) 100 mls @ 0 mls/hr IV .Q0M DEMOND; Protocol Last Titration: 12/17/24 08:50 Dose: 5 mg/hr, 5 mls/hr Heparin Sodium/Sodium Chloride (Heparin Drip) 25,000 unit in 500 mls @ 0 mls/hr IV CONT [facility]; Protocol Last Titration: 12/17/24 08:21 Dose: 8.92 unit/kg/hr, 17 mls/hr Nitroglycerin (Nitroglycerin 0.4 Mg Sublingual Tablet) 0.4 mg SUBLINGUAL Q5M PRN PRN Reason: CHEST PAIN Stop: 12/18/24 06:21 Ondansetron HCl (Ondansetron 2 Mg/Ml Sdv 2 Ml) 4 mg IVP Q8H PRN PRN Reason: vomiting, or N/V if npo Ondansetron HCl (Ondansetron 2 Mg/Ml Sdv 2 Ml) 4 mg IVP Q2M PRN PRN Reason: NAUSEA Pantoprazole Sodium (Pantoprazole Dr 40 Mg Tablet) 40 mg PO DAILY [facility] Last Admin: 12/17/24 08:31 Dose: 40 mg Vitals/I&O/Wt Last Vital Signs Temp 97.6 F 12/17/24 09:00 Pulse 95 12/17/24 08:30 Resp 20 H 12/17/24 08:30 BP 143/107 12/17/24 08:30 Pulse Ox 99 12/17/24 06:30 O2 Del Method Room Air 12/17/24 04:00 12/16/24 12/17/2425 22:59 06:59 14:59 Intake Total 482.584 / 1261.634 217.333 / 1478.967 0 / 0 Output Total 750 / 1350 1025 / 2375 Balance -267.416 / -88.366 -807.667 / -896.033 0 / 0 Weight last 48 hrs Weight 214 lb 6.4 oz Weight 217 lb 7 oz Weight 210 lb Physical Exam 2 Narrative: GENERAL: The patient is alert and oriented times three. Not in any acute distress. HEENT: No significant pallor, icterus or lymphadenopathy.Oral cavity: There are no mucous membrane lesions. NECK: Trachea appears to be central. No masses noted. No JVD or thyromegaly appreciated. RESPIRATORY: Chest is symmetrical. No intercostals muscle retraction or any accessory muscle activation. There is no chest wall tenderness. Breath sounds are heard bilaterally. No rales or rhonchi heard. No evidence of any consolidation. BREASTS: Deferred. HEART: The heart sounds are normal. No S3 or S4. No significant murmurs. No pericardial rub ABDOMEN: No vessel pulsations or distention. No tenderness. No organomegaly appreciated. Bowel sounds are normally heard. : Deferred. RECTAL: Deferred. LYMPHATIC: No lymphadenopathy noted in the neck. EXTREMITIES: No edema or cyanosis. No clubbing. MUSCULOSKELETAL: No acute joint deformities or swelling SKIN: There are no significant rashes or ecchymosis NEUROPSYCHIATRIC: The patient is alert and oriented x3. Appears to be in a good mood. No tremors or rigidity noted. Data 12/17/24 00:29 12/17/24 00:29 Other Labs: Laboratory Last Values WBC 6.36 10^3/uL (3.29-11.43) 12/17/24 00:29 RBC 4.52 10^6/uL (3.85-5.65) 12/17/24 00:29 Hgb 13.70 g/dL (11.27-16.99) 12/17/24 00:29 Hct 42.1 % (37-53) 12/17/24 00:29 MCV 93.1 fl (82-101) 12/17/24 00:29 MCH 30.3 pg (27-33) 12/17/24 00:29 MCHC 32.5 g/dL (30-55) 12/17/24 00: RDW 12.2 % (12.1-15.1) 12/17/24 00: Plt Count 215 10^3/cmm (157-399) 12/17/24 00: MPV 11.0 fL (7.4-10.4) H 12/17/24 00: Neut % (Auto) 58.8 % 12/17/24 00: Lymph % (Auto) 30.5 % 12/17/24: [place] % (Auto) 8.5 % 12/17/24 00: Eos % (Auto) 1.3 % 12/17/24 00: Baso % (Auto) 0.6 % 12/17/24 00: Neut # (Auto) 3.74 10^3/uL (1.8-7.7) 12/17/24: Lymph # (Auto) 1.9 10^3/uL (0.8-4.8) 12/17/24 00: [place] # (Auto) 0.5 10^3/uL (0.2-0.9) 12/17/24 00: Eos # (Auto) 0.1 10^3/uL (0.0-0.8) 12/17/24 00: Baso # (Auto) 0.0 10^3/uL (0.0-0.1) 12/17/24 00: Nucleated RBC % (auto) 0 % 12/17/24 00: Nucleated RBCs # 0.0 /100WBC 12/17/24 APTT 36.7 SECONDS (23.9-36.7) 12/17/24 08:40 Sodium 139 mmol/L (136-145) 12/17/24 00: Potassium 4.2 mmol/L (3.5-5.1) 12/17/24 00: Chloride 106 mmol/L (98-107) 12/17/24 00: Carbon Dioxide 23 mmol/L (22-29) 12/17/24 00: Anion Gap 14.2 (5-19) 12/17/24 00: BUN 18 mg/dL (8-23) 12/17/24 00: Creatinine 1.0 mg/dL (0.7-1.2) 12/17/24 00:29 GFR Calculation 74.1 mL/min (90-130) L 12/17/24 00:29 Glucose 97 mg/dL (65-115) 12/17/24 00:29 Estimat Average Glucose 108 12/15/24 11:17 Hemoglobin A1c 5.4 % (4.0-6.0) 12/15/24 11:17 Calculated Osmolality 290 mOsm/kg (285-295) 12/17/24 00:29 Calcium 9.0 mg/dL (8.5-10.5) 12/17/24 00:29 Magnesium 1.8 mg/dL (1.7-2.3) 12/17/24 00:29 Total Bilirubin 0.5 mg/dL (0.15-1.2) 12/16/24 04:56 AST 20 U/L (0-40) 12/16/24 04:56 ALT 14 U/L (0-41) 12/16/24 04:56 Alkaline Phosphatase 64 U/L (40-130) 12/16/24 04:56 Troponin T Baseline 32 ng/L (0-15) H 12/15/24 11:17 Troponin T 120 Minute 29.33 ng/L (0-15) H 12/15/24 13:10 Delta Troponin T -2.67 ABS# (0-10) L 12/15/24 13:10 Troponin T Hi Sens 6Hr 22.50 ng/L (0-15) H 12/15/24 17:32 Troponin T Hi Sens 6Hr Delta -9.50 ng/L (0-12) L 12/15/24 17:32 C-Reactive Protein 4.9 mg/L (0.0-4.9) 12/15/24 11:17 NT-Pro-B Natriuret Pep 1114 pg/mL (0-125) H 12/15/24 11:17 Total Protein 6.5 g/dL (6.6-8.7) L 12/16/24 04:56 Albumin 3.8 g/dL (3.5-5.2) 12/16/24 04:56 Globulin 2.7 g/dL (1.3-4.6) 12/16/24 04:56 Triglycerides 191 mg/dL (0-150) H 12/15/24 13:10 Cholesterol 232 mg/dL (0-200) H 12/15/24 13:10 LDL Cholesterol, Calc 155 mg/dL (50-129) H 12/15/24 13:10 HDL Cholesterol 39 mg/dL (60-100) L 12/15/24 13:10 LDL/HDL Ratio 3.97 RATIO (0.00-3.22) H 12/15/24 13:10 Cholesterol/HDL Ratio 5.95 mg/dL (1.0-5.00) H 12/15/24 13:10 TSH 3.02 uIU/mL (0.27-4.20) 12/15/24 13:10 Urine Color Yellow (Yellow) 12/15/24 12:20 Urine Appearance Clear (CLEAR) 12/15/24 12:20 Urine pH 7.0 (5-7) 12/15/24 12:20 Ur Specific [place] 1.018 (1.005-1.030) 12/15/24 12:20 Urine Protein 2+ (Negative) A 12/15/24 12:20 Urine Glucose (UA) Negative (Normal) 12/15/24 12:20 Urine Ketones Trace (Negative) 12/15/24 12:20 Urine Blood Negative (Negative) 12/15/24 12:20 Urine Nitrate Negative (Negative) 12/15/24 12:20 Urine Bilirubin Negative (Negative) 12/15/24 12:20 Urine Urobilinogen 1.0 mg/dL (Negative) 12/15/24 12:20 Ur Leukocyte Esterase Trace (Negative) A 12/15/24 12:20 Urine RBC 0-2 /hpf (0-2) 12/15/24 12:20 Urine WBC 6-10 /hpf (0-5) 12/15/24 12:20 Ur Squamous Epith Cells 0-5 /hpf (0-5) 12/15/24 12:20 Amorphous Sediment Not Reportable 12/15/24 12:20 Urine Bacteria None seen /hpf (NONE) 12/15/24 12:20 Hyaline Casts 29.37 /lpf 12/15/24 12:20 A&P Assessment and plan (1) Atrial fibrillation with RVR: Etiology is not clear. No evidence of any myocardial ischemia or injury. His LV function is normal. No significant valvular lesions. Found to have mild tricuspid regurgitation. Patient is on IV Cardizem. Also on IV heparin. (2) New onset of congestive heart failure: Patient had evidence of mild congestive heart failure. Most likely related to the arrhythmia. Currently he has no evidence of cardiac decompensation. Oxygenation is good in room air. (3) Dizziness: Most likely from the arrhythmia. Currently it is resolved. (4) SOB (shortness of breath): Possibly from the atrial fibrillation/flutter. Currently it is resolved. LV function is normal by echocardiogram. (5) Dyslipidemia: Patient is on a statin drug. This may be continued. Plan If the Myocardial perfusion imaging today is negative, I will start the patient on flecainide 75 mg p.o. twice daily. I will also discontinue the IV Cardizem and start the patient on metoprolol 25 mg p.o. twice daily based on the results of the above, further recommendations will be made. Thank you for the opportunity to evaluate this patient and make these recommendations PDMP PDMP Reviewed: Not Reviewed Attestations 2 Medical Necessity Statement*: patient requires continued hospital stay for close monitoring and further management Coding Level of Care Code 86237 Diagnoses Atrial fibrillation with RVR I48.91 New onset of congestive heart failure I50.9 Dizziness R42 SOB (shortness of breath) R06.02 Dyslipidemia E78.5
--- NOTE | 2024-12-17 09:20 | P.PN_ITS ---
Subjective 2 Subjective: seen today pt returned from stress test awaiting results in atrial flutter, rates 120's Vitals/I&O/Wt Last Vital Signs Temp 97.6 F 12/17/24 09:00 Pulse 95 12/17/24 08:30 Resp 20 H 12/17/24 08:30 BP 143/107 12/17/24 08:30 Pulse Ox 99 12/17/24 06:30 O2 Del Method Room Air 12/17/24 04:00 12/16/24 12/17/24 12/17/24 22:59 06:59 14:59 Intake Total 482.584 / 1261.634 217.333 / 1478.967 0 / 0 Output Total 750 / 1350 1025 / 2375 Balance -267.416 / -88.366 -807.667 / -896.033 0 / 0 Weight last 48 hrs Weight 97.25 kg Weight 98.628 kg Weight 95.254 kg Physical Exam 2 Narrative: General: Alert oriented x3, patient seen sitting up in bed appearing comfortable at this time. HEENT: Normocephalic, atraumatic, EOMI, reading room air. Cardio: Irregularly irregular, tachycardic. 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 Baseline unknown but most likely normal ? Received Cardizem 20 IV push and Cardizem drip was started. continue drip at this time ? start heparin drip for AC ? Check echocardiogram ? Elevated BNP 1100 however clinically patient appears dehydrated. ? 1 L normal saline bolus given in ER. ? Hold off on further fluids. ? Await 2-hour 6-hour troponin ? Will likely require cardiology consult once echo has resulted. ? Dizziness near syncope most likely secondary to new onset atrial fibrillation ? Continue to monitor patient on telemetry at this time -Keep magnesium greater than 2, potassium greater than 4. Full code Due to prophylaxis: Heparin ggt 12/17/2024 seen this morning remains in atrial flutter echo resulted, reviewed, EF normal stress test completed, ok to start flecanide 75 bid, lopressor 12.5 bid. dicussed with cardiology cardio consulted pt symptoms have improved dc cardizem drip needs to be monitored in hospital today plan for dc in am if HR improves PDMP PDMP Reviewed: Not Reviewed Attestations 2 Medical Necessity Statement*: needs continued cardiac monitoring for anti-arrhythmic initiation and active atrial flutter with RVR Diagnoses Tachycardia R00.0 KARINA (acute kidney injury) N17.9 Dizziness R42 Near syncope R55 Elevated troponin I level R79.89 Atrial flutter with rapid ventricular response I48.92
[2024-12-17] MEDS: flecainide 100 mg Tablet 75 MG PO ×2 (11:00→22:17)
[2024-12-17] MEDS: magnesium sulfate premix 1 GM/100 ML PIGGYBACK IV (11:00)
[2024-12-17] MEDS: metoprolol tartrate 25 mg Tablet 12.5 MG PO ×2 (11:01→22:16)
[2024-12-17] MEDS: heparin 5,000 unit/mL INJ 1 mL IVP (11:02)
[2024-12-17] MEDS: heparin drip 25,000 UNIT/500 ML PREMIX 21 UNIT IV (18:02)
[2024-12-17 18:15] LABS: Partial Thromboplastin Time 73.6 SECONDS (23.9-36.7)
--- NOTE | 2024-12-17 18:44 | ECG_ITS ---
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 Measurements Intervals [place] Rate: 81 P: 44 [place]: 200 QRS: -41 QRSD: 101 T: 23 QT: 367 QTc: 426 Interpretive Statements SINUS RHYTHM LEFT AXIS DEVIATION [QRS AXIS < -30] PATTERN CONSISTENT WITH PULMONARY DISEASE MINIMAL VOLTAGE CRITERIA FOR LVH, CONSIDER NORMAL VARIANT [MEETS CRITERIA IN ONE OF: R(aVL), S(V1), R(V5), R(V5/V6)+S(V1)] Compared to ECG 12/16/2024 10:05:59 Atrial fibrillation no longer present Electronically Signed On 12-17-2024 21:03:47 CDT by Donald Logan M.D. [email or web address]
--- NOTE | 2024-12-17 20:14 | PC.NURSE ---
conversion back to sinus rhythm Pt converted back to sinus rhythm upon checking the tele monitor around 6pm, HR-upper 80s, BP-111/82, pt is up in chair, resting comfortably. 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 ekg taken.
[2024-12-17] MEDS: atorvastatin 40 mg Tablet PO (22:19)
[2024-12-18] VITALS: BP 134/84; PULSE 50; RESP 18; O2SAT 98
[2024-12-18] LABS: Partial Thromboplastin Time 76.3 SECONDS (23.9-36.7)
[2024-12-18 04:00] VITALS: BP 131/83; PULSE 68; RESP 13; TEMP 36.6; O2SAT 97
[2024-12-18 04:19] LABS: Basophils % 0.6 %; Eosinophils # 0.1 10^3/uL (0.0-0.8); Eosinophils % 1.6 %; Lymphocytes # 1.5 10^3/uL (0.8-4.8); Lymphocytes % 29.6 %; Mean Corpuscular HGB Conc 33.1 g/dL (30-55); Mean Corpuscular Hemoglobin 30.4 pg (27-33); Mean Corpuscular Volume 91.8 fl (82-101); Mean Platelet Volume 10.9 fL (7.4-10.4); Monocytes # 0.5 10^3/uL (0.2-0.9); Monocytes % 9.2 %; Neutrophils # 3.01 10^3/uL (1.8-7.7); Neutrophils % 58.6 %; Nucleated Red Blood Cells % 0 %; Platelet Count 200 10^3/cmm (157-399); Red Blood Count 4.25 10^6/uL (3.85-5.65); Red Cell Distribution Width 12.1 % (12.1-15.1); White Blood Count 5.13 10^3/uL (3.29-11.43)
[2024-12-18 04:47] LABS: Blood Urea Nitrogen 18 mg/dL (8-23); Calcium 8.8 mg/dL (8.5-10.5); Carbon Dioxide 26 mmol/L (22-29); Chloride 104 mmol/L (98-107); Creatinine Clr Calc Pharmacy 75.3098; Glomerular Filtration Rate 66.4 mL/min (90-130); Glucose 89 mg/dL (65-115); Magnesium 1.8 mg/dL (1.7-2.3); Osmolality Calculated 287 mOsm/kg (285-295); Sodium 138 mmol/L (136-145)
[2024-12-18 07:04] LABS: Partial Thromboplastin Time 71.9 SECONDS (23.9-36.7)
[2024-12-18 07:49] VITALS: BP 135/98; PULSE 60; RESP 15; TEMP 36.7; O2SAT 96
--- NOTE | 2024-12-18 08:43 | ECG_ITS ---
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
--- NOTE | 2024-12-18 09:24 | PM.DCS ---
Discharge Providers Date of Admission: 12/16/24 17:45 Date of Discharge: December 18, 2024 Attending Provider at Admission: Pilar Ramos MD Attending Provider at Discharge: Pilar Ramos MD Primary Care Provider: Quirino Rothman MD Diagnoses at Discharge Discharge Diagnosis (1) Atrial fibrillation with RVR: Status: Acute (2) New onset of congestive heart failure: Status: Acute (3) Dizziness: Status: Acute (4) SOB (shortness of breath): Status: Acute (5) Dyslipidemia: Status: Acute (6) Tachycardia: Status: Acute (7) Elevated troponin I level: Status: Acute (8) KARINA (acute kidney injury): Status: Acute (9) Near syncope: Status: Acute (10) Atrial flutter with rapid ventricular response: Status: Acute Reason for Visit Reason for Visit: dizzy/weak Hospital Course Hospital Course Patient presented to the hospital with new onset atrial flutter with RVR. He also had some rate related heart failure with elevated BNP. Clinically however did not have any heart failure symptoms. He was given 1 L normal saline bolus in the ER. He appeared to be dehydrated at first. Dizziness syncope did improve. Patient did not convert to sinus rhythm with Cardizem drip. Patient underwent stress testing which was negative for ischemia. Cardiology consulted for possible cardioversion. Patient was started on oral flecainide and Lopressor. Patient converted to sinus rhythm thereafter. He was kept on heparin drip during hospitalization. At discharge was transition to Eliquis. Patient will follow-up with cardiology as an outpatient within a week of discharge. He feels well and will be discharged home in stable condition today. Physical Exam Narrative: General: Alert oriented x3, patient seen sitting up in bed appearing comfortable at this time. HEENT: Normocephalic, atraumatic, EOMI, reading room air. Cardio: Sinus rhythm, regular rate rhythm. Respiratory: Good bilateral air entry, no wheezes no rhonchi appreciated GI: Abdomen soft, nontender, nondistended, bowel sounds + Behavior: Appropriate and cooperative Extremities: No edema bilateral lower extremity Discharge Data Studies Completed and Pending Completed Studies During Hospitalization Category Date Time Status Sestamibi Stress Test Request Routine Exams 12/16/24 12:59 Draft XR chest 2V* [id number] Stat Exams 12/15/24 11:32 Completed NM aye perf SPECT r/s* [id number] Routine Nuc Med 12/17/24 05:30 Completed CV. echo complete* [id number] Routine Ultrasound 12/16/24 14:51 Completed Pending at discharge Category Date Time Status PTT [Partial Thromboplastin Time] Stat Lab 12/18/24 12:30 Ordered Platelet Count Q2D Lab 12/19/24 04:00 Ordered Radiology Impressions Chest X-Ray 12/15/24 11:32 IMPRESSION: No acute cardiopulmonary process. Laboratory Results WBC 5.13 10^3/uL (3.29-11.43) 12/18/24 03:25 RBC 4.25 10^6/uL (3.85-5.65) 12/18/24 03:25 Hgb 12.90 g/dL (11.27-16.99) 12/18/24 03:25 Hct 39.0 % (37-53) 12/18/24 03: MCV 91.8 fl (82-101) 12/18/24 03: MCH 30.4 pg (27-33) 12/18/24 03: MCHC 33.1 g/dL (30-55) 12/18/24 03:25 RDW 12.1 % (12.1-15.1) 12/18/24 03:25 Plt Count 200 10^3/cmm (157-399) 12/18/24 03:25 MPV 10.9 fL (7.4-10.4) H 12/18/24 03:25 Neut % (Auto) 58.6 % 12/18/24 03:25 Lymph % (Auto) 29.6 % 12/18/24 03:25 [place] % (Auto) 9.2 % 12/18/24 03:25 Eos % (Auto) 1.6 % 12/18/24 03:25 Baso % (Auto) 0.6 % 12/18/24 03:25 Neut # (Auto) 3.01 10^3/uL (1.8-7.7) 12/18/24 03: Lymph # (Auto) 1.5 10^3/uL (0.8-4.8) 12/18/24 03:25 [place] # (Auto) 0.5 10^3/uL (0.2-0.9) 12/18/24 03:25 Eos # (Auto) 0.1 10^3/uL (0.0-0.8) 12/18/24 03:25 Baso # (Auto) 0.0 10^3/uL (0.0-0.1) 12/18/24 03:25 Nucleated RBC % (auto) 0 % 12/18/24 03:25 Nucleated RBCs # 0.0 /100WBC 12/18/24 03:25 APTT 71.9 SECONDS (23.9-36.7) H 12/18/24 06:23 Sodium 138 mmol/L (136-145) 12/18/24 03:25 Potassium 4.0 mmol/L (3.5-5.1) 12/18/24 03:25 Chloride 104 mmol/L (98-107) 12/18/24 03:25 Carbon Dioxide 26 mmol/L (22-29) 12/18/24 03:25 Anion Gap 12.0 (5-19) 12/18/24 03:25 BUN 18 mg/dL (8-23) 12/18/24 03:25 Creatinine 1.1 mg/dL (0.7-1.2) 12/18/24 03:25 GFR Calculation 66.4 mL/min (90-130) L 12/18/24 03:25 Glucose 89 mg/dL (65-115) 12/18/24 03:25 Estimat Average Glucose 108 12/15/24 11:17 Hemoglobin A1c 5.4 % (4.0-6.0) 12/15/24 11:17 Calculated Osmolality 287 mOsm/kg (285-295) 12/18/24 03:25 Calcium 8.8 mg/dL (8.5-10.5) 12/18/24 03:25 Magnesium 1.8 mg/dL (1.7-2.3) 12/18/24 03:25 Total Bilirubin 0.5 mg/dL (0.15-1.2) 12/16/24 04:56 AST 20 U/L (0-40) 12/16/24 04:56 ALT 14 U/L (0-41) 12/16/24 04:56 Alkaline Phosphatase 64 U/L (40-130) 12/16/24 04:56 Troponin T Baseline 32 ng/L (0-15) H 12/15/24 11:17 Troponin T 120 Minute 29.33 ng/L (0-15) H 12/15/24 13:10 Delta Troponin T -2.67 ABS# (0-10) L 12/15/24 13:10 Troponin T Hi Sens 6Hr 22.50 ng/L (0-15) H 12/15/24 17:32 Troponin T Hi Sens 6Hr Delta -9.50 ng/L (0-12) L 12/15/24 17:32 C-Reactive Protein 4.9 mg/L (0.0-4.9) 12/15/24 11:17 NT-Pro-B Natriuret Pep 1114 pg/mL (0-125) H 12/15/24 11:17 Total Protein 6.5 g/dL (6.6-8.7) L 12/16/24 04:56 Albumin 3.8 g/dL (3.5-5.2) 12/16/24 04:56 Globulin 2.7 g/dL (1.3-4.6) 12/16/24 04:56 Triglycerides 191 mg/dL (0-150) H 12/15/24 13:10 Cholesterol 232 mg/dL (0-200) H 12/15/24 13:10 LDL Cholesterol, Calc 155 mg/dL (50-129) H 12/15/24 13:10 HDL Cholesterol 39 mg/dL (60-100) L 12/15/24 13:10 LDL/HDL Ratio 3.97 RATIO (0.00-3.22) H 12/15/24 13:10 Cholesterol/HDL Ratio 5.95 mg/dL (1.0-5.00) H 12/15/24 13:10 TSH 3.02 uIU/mL (0.27-4.20) 12/15/24 13:10 Urine Color Yellow (Yellow) 12/15/24 12:20 Urine Appearance Clear (CLEAR) 12/15/24 12:20 Urine pH 7.0 (5-7) 12/15/24 12:20 Ur Specific [place] 1.018 (1.005-1.030) 12/15/24 12:20 Urine Protein 2+ (Negative) A 12/15/24 12:20 Urine Glucose (UA) Negative (Normal) 12/15/24 12:20 Urine Ketones Trace (Negative) 12/15/24 12:20 Urine Blood Negative (Negative) 12/15/24 12:20 Urine Nitrate Negative (Negative) 12/15/24 12:20 Urine Bilirubin Negative (Negative) 12/15/24 12:20 Urine Urobilinogen 1.0 mg/dL (Negative) 12/15/24 12:20 Ur Leukocyte Esterase Trace (Negative) A 12/15/24 12:20 Urine RBC 0-2 /hpf (0-2) 12/15/24 12:20 Urine WBC 6-10 /hpf (0-5) 12/15/24 12:20 Ur Squamous Epith Cells 0-5 /hpf (0-5) 12/15/24 12:20 Amorphous Sediment Not Reportable 12/15/24 12:20 Urine Bacteria None seen /hpf (NONE) 12/15/24 12:20 Hyaline Casts 29.37 /lpf 12/15/24 12:20 Vitals Last Vital Signs Temp 98.0 F 12/18/24 07:49 Pulse 60 12/18/24 07:49 Resp 15 12/18/24 07:49 BP 135/98 12/18/24 07:49 Pulse Ox 96 12/18/24 07:49 O2 Del Method Room Air 12/18/24 07:49 Discharge Plan Discharge Patient Disposition: Home Condition: Stable Prescriptions: New atorvastatin 40 mg Tablet 40 mg PO BEDTIME Qty: 30 0RF pantoprazole 40 mg Tablet,Delayed Release (Dr/Ec) 20 mg PO DAILY Qty: 30 0RF metoprolol tartrate 25 mg Tablet 25 mg PO BID@0900,2100 Qty: 60 0RF flecainide 50 mg tablet 75 mg PO Q12H Qty: 90 0RF Eliquis 5 mg tablet 5 mg PO BID Qty: 60 0RF Continued aspirin [Adult Low Dose Aspirin] 81 mg tablet,delayed release (DR/EC) 81 mg PO DAILY Qty: 30 5RF tamsulosin 0.4 mg capsule 0.4 mg PO DAILY Qty: 30 11RF Discharge Orders: Discharge Order (Routine); Ordered 12/18/24 Ordered By: Pilar Ramos Referrals: Donald Logan MD [Physician] - 12/27/24 3:00 pm Quirino Rothman MD [Primary Care Provider] - 12/25/24 11:20 am Discharge Diet: Cardiac Discharge Activity: Resume usual activity Patient Instructions: Metoprolol (By mouth) (Lopressor, Toprol XL), Flecainide (By mouth) (Tambocor), Atorvastatin (By mouth) (Lipitor, Atorvaliq), Pantoprazole (By mouth) (Protonix), Apixaban (By mouth) (Eliquis), Heart Failure (DC), A-fib (Atrial Fibrillation) (DC), CHF Stoplight, Opioid Safety, Stroke Stoplight Discharge Attestations Time Spent in Discharge Care*: greater than 30 min Quality Metrics Clinical Quality Measures [ No reported AMI, CVA or VTE this stay] Coding Level of Care Code Acute Code for [facility] Fwd Diagnoses Atrial fibrillation with RVR I48.91 New onset of congestive heart failure I50.9 Dizziness R42 SOB (shortness of breath) R06.02 Dyslipidemia E78.5 Tachycardia R00.0 Elevated troponin I level R79.89 KARINA (acute kidney injury) N17.9 Near syncope R55 Atrial flutter with rapid ventricular response I48.92
[2024-12-18] MEDS: flecainide 100 mg Tablet 75 MG PO (09:39)
[2024-12-18] MEDS: pantoprazole DR 40 mg Tablet PO (09:39)
[2024-12-18] MEDS: aspirin 81 mg EC Tablet PO (09:40)
[2024-12-18] MEDS: metoprolol tartrate 25 mg Tablet 12.5 MG PO (10:03)
[2024-12-18 10:49] VITALS: BP 135/98; PULSE 57; RESP 16; O2SAT 96
--- NOTE | 2024-12-18 11:19 | PC.NURSE ---
pt remains in nsr.discharge instructions given and explained.pt verb understanding of instructions.discharged ambulatory to exit at this time.spouse to drive pt home
--- NOTE | 2024-12-18 13:22 | P.PN_ITS ---
Subjective 2 Subjective: Patient is feeling okay. The Myocardial perfusion imaging from yesterday revealed no evidence of ischemia. Patient was started on flecainide. He converted to normal sinus rhythm last evening. Currently he is staying in sinus rhythm. Vitals/I&O/Wt Last Vital Signs Temp 98.0 F 12/18/24 07:49 Pulse 57 L 12/18/24 10:49 Resp 16 12/18/24 10:49 BP 135/98 12/18/24 10:49 Pulse Ox 96 12/18/24 10:49 O2 Del Method Room Air 12/18/24 07:49 12/17/24 12/18/24 12/18/24 22:59 06:59 14:59 Intake Total 816.8 / 1860.500 216.2 / 2076.700 734.000 / 734.000 Output Total 300 / 450 Balance 816.8 / 1710.500 -83.8 / 1626.700 734.000 / 734.000 Weight last 48 hrs Weight 214 lb Weight 214 lb 6.4 oz Physical Exam 2 Narrative: GENERAL: The patient is alert and oriented times three. Not in any acute distress. HEENT: No significant pallor, icterus or lymphadenopathy.Oral cavity: There are no mucous membrane lesions. NECK: Trachea appears to be central. No masses noted. No JVD or thyromegaly appreciated. RESPIRATORY: Chest is symmetrical. No intercostals muscle retraction or any accessory muscle activation. There is no chest wall tenderness. Breath sounds are heard bilaterally. No rales or rhonchi heard. No evidence of any consolidation. BREASTS: Deferred. HEART: The heart sounds are normal. No S3 or S4. No significant murmurs. No pericardial rub ABDOMEN: No vessel pulsations or distention. No tenderness. No organomegaly appreciated. Bowel sounds are normally heard. : Deferred. RECTAL: Deferred. LYMPHATIC: No lymphadenopathy noted in the neck. EXTREMITIES: No edema or cyanosis. No clubbing. MUSCULOSKELETAL: No acute joint deformities or swelling SKIN: There are no significant rashes or ecchymosis NEUROPSYCHIATRIC: The patient is alert and oriented x3. Appears to be in a good mood. No tremors or rigidity noted. Data 12/18/24 03:25 12/18/24 03:25 Other Labs: Laboratory Last Values WBC 5.13 10^3/uL (3.29-11.43) 12/18/24 03: RBC 4.25 10^6/uL (3.85-5.65) 12/18/24 03:25 Hgb 12.90 g/dL (11.27-16.99) 12/18/24 03:25 Hct 39.0 % (37-53) 12/18/24 03:25 MCV 91.8 fl (82-101) 12/18/24 03:25 MCH 30.4 pg (27-33) 12/18/24 03:25 MCHC 33.1 g/dL (30-55) 12/18/24 03:25 RDW 12.1 % (12.1-15.1) 12/18/24 03: Plt Count 200 10^3/cmm (157-399) 12/18/24 03: MPV 10.9 fL (7.4-10.4) H 12/18/24 03:25 Neut % (Auto) 58.6 % 12/18/24 03:25 Lymph % (Auto) 29.6 % 12/18/24 03:25 [place] % (Auto) 9.2 % 12/18/24 03:25 Eos % (Auto) 1.6 % 12/18/24 03:25 Baso % (Auto) 0.6 % 12/18/24 03: Neut # (Auto) 3.01 10^3/uL (1.8-7.7) 12/18/24 03: Lymph # (Auto) 1.5 10^3/uL (0.8-4.8) 12/18/24 03:25 [place] # (Auto) 0.5 10^3/uL (0.2-0.9) 12/18/24 03:25 Eos # (Auto) 0.1 10^3/uL (0.0-0.8) 12/18/24 03:25 Baso # (Auto) 0.0 10^3/uL (0.0-0.1) 12/18/24 03: Nucleated RBC % (auto) 0 % 12/18/24 03: Nucleated RBCs # 0.0 /100WBC 12/18/24 03: APTT 71.9 SECONDS (23.9-36.7) H 12/18/24 06:23 Sodium 138 mmol/L (136-145) 12/18/24 03:25 Potassium 4.0 mmol/L (3.5-5.1) 12/18/24 03:25 Chloride 104 mmol/L (98-107) 12/18/24 03:25 Carbon Dioxide 26 mmol/L (22-29) 12/18/24 03:25 Anion Gap 12.0 (5-19) 12/18/24 03:25 BUN 18 mg/dL (8-23) 12/18/24 03:25 Creatinine 1.1 mg/dL (0.7-1.2) 12/18/24 03:25 GFR Calculation 66.4 mL/min (90-130) L 12/18/24 03:25 Glucose 89 mg/dL (65-115) 12/18/24 03:25 Estimat Average Glucose 108 12/15/24 11:17 Hemoglobin A1c 5.4 % (4.0-6.0) 12/15/24 11:17 Calculated Osmolality 287 mOsm/kg (285-295) 12/18/24 03:25 Calcium 8.8 mg/dL (8.5-10.5) 12/18/24 03:25 Magnesium 1.8 mg/dL (1.7-2.3) 12/18/24 03:25 Total Bilirubin 0.5 mg/dL (0.15-1.2) 12/16/24 04:56 AST 20 U/L (0-40) 12/16/24 04:56 ALT 14 U/L (0-41) 12/16/24 04:56 Alkaline Phosphatase 64 U/L (40-130) 12/16/24 04:56 Troponin T Baseline 32 ng/L (0-15) H 12/15/24 11:17 Troponin T 120 Minute 29.33 ng/L (0-15) H 12/15/24 13:10 Delta Troponin T -2.67 ABS# (0-10) L 12/15/24 13:10 Troponin T Hi Sens 6Hr 22.50 ng/L (0-15) H 12/15/24 17:32 Troponin T Hi Sens 6Hr Delta -9.50 ng/L (0-12) L 12/15/24 17:32 C-Reactive Protein 4.9 mg/L (0.0-4.9) 12/15/24 11:17 NT-Pro-B Natriuret Pep 1114 pg/mL (0-125) H 12/15/24 11:17 Total Protein 6.5 g/dL (6.6-8.7) L 12/16/24 04:56 Albumin 3.8 g/dL (3.5-5.2) 12/16/24 04:56 Globulin 2.7 g/dL (1.3-4.6) 12/16/24 04:56 Triglycerides 191 mg/dL (0-150) H 12/15/24 13:10 Cholesterol 232 mg/dL (0-200) H 12/15/24 13:10 LDL Cholesterol, Calc 155 mg/dL (50-129) H 12/15/24 13:10 HDL Cholesterol 39 mg/dL (60-100) L 12/15/24 13:10 LDL/HDL Ratio 3.97 RATIO (0.00-3.22) H 12/15/24 13:10 Cholesterol/HDL Ratio 5.95 mg/dL (1.0-5.00) H 12/15/24 13:10 TSH 3.02 uIU/mL (0.27-4.20) 12/15/24 13:10 Urine Color Yellow (Yellow) 12/15/24 12:20 Urine Appearance Clear (CLEAR) 12/15/24 12:20 Urine pH 7.0 (5-7) 12/15/24 12:20 Ur Specific [place] 1.018 (1.005-1.030) 12/15/24 12:20 Urine Protein 2+ (Negative) A 12/15/24 12:20 Urine Glucose (UA) Negative (Normal) 12/15/24 12:20 Urine Ketones Trace (Negative) 12/15/24 12:20 Urine Blood Negative (Negative) 12/15/24 12:20 Urine Nitrate Negative (Negative) 12/15/24 12:20 Urine Bilirubin Negative (Negative) 12/15/24 12:20 Urine Urobilinogen 1.0 mg/dL (Negative) 12/15/24 12:20 Ur Leukocyte Esterase Trace (Negative) A 12/15/24 12:20 Urine RBC 0-2 /hpf (0-2) 12/15/24 12:20 Urine WBC 6-10 /hpf (0-5) 12/15/24 12:20 Ur Squamous Epith Cells 0-5 /hpf (0-5) 12/15/24 12:20 Amorphous Sediment Not Reportable 12/15/24 12:20 Urine Bacteria None seen /hpf (NONE) 12/15/24 12:20 Hyaline Casts 29.37 /lpf 12/15/24 12:20 Other data: The EKG from today revealed sinus rhythm with a QRS duration of [address] Ts. A&P Assessment and plan (1) Atrial fibrillation with RVR: Patient is currently converted to sinus rhythm. He is on flecainide 75 mg p.o. twice daily and metoprolol 12.5 mg p.o. twice daily. The dose of the metoprolol may be increased to 25 mg p.o. twice daily. (2) New onset of congestive heart failure: Most likely from the atrial fibrillation. Currently compensated. Patient may not require any specific intervention at this point. (3) Dizziness: Most likely from the arrhythmia. Currently it is resolved. (4) SOB (shortness of breath): Possibly from the atrial fibrillation/flutter. Currently it is resolved. LV function is normal by echocardiogram. (5) Dyslipidemia: Patient is on a statin drug. This may be continued. Plan If the patient continues to remain stable, may be discharged home on flecainide 75 mg p.o. twice daily. Metoprolol 25 mg p.o. twice daily. Other medications as per the primary care. He needs to be seen in the office in a week by the nurse practitioner. I will see him in the office in [address] Ramos PDMP PDMP Reviewed: Not Reviewed Attestations 2 Medical Necessity Statement*: Possible discharge home today Coding Level of Care Code 66905 Diagnoses Atrial fibrillation with RVR I48.91 New onset of congestive heart failure I50.9 Dizziness R42 SOB (shortness of breath) R06.02 Dyslipidemia E78.5
== END 2024-12-18 11:21 | disposition home or self-care (01) | DRG 309 ==
LOC: ER 14:23 → CSU 14:29
PROVIDERS: Admitting Provider Internal Medicine; Emergency Provider Emergency Medicine; PCP Family Medicine; Visit Provider Internal Medicine
DX: I48.91 Unspecified atrial fibrillation (principal); N17.9 Acute kidney failure, unspecified; I50.9 Heart failure, unspecified; E78.5 Hyperlipidemia, unspecified; R79.89 Other specified abnormal findings of blood chemistry; R55 Syncope and collapse; I48.92 Unspecified atrial flutter; Z82.49 Family history of ischemic heart disease and other diseases of the circulatory system; Z79.82 Long term (current) use of aspirin
CPT/HCPCS: 36415; 71046; 78452; 80048; 80053; 80061; 81001; 83036; 83735; 83880; 84443; 84484; 85025; 85730; 86140; 93005; 93017; 93306; 96372; 96375; A9270; A9500; G0378; J1644; J2785; J3475; J3490; J7030; J9999

== ENCOUNTER → 2025-01-01 15:42 | Outpatient (BNVA) | payer MEDICARE, OTHER, SELFPAY | PROVIDERS: PCP Family Medicine; Visit Provider Nurse Practitioner Family | DX: I48.92 Unspecified atrial flutter (principal); Z09 Encounter for follow-up examination after completed treatment for conditions other than malignant neoplasm | CPT/HCPCS: 93005; 99214 ==

== ENCOUNTER → 2025-07-17 13:54 | Outpatient (BNVA) | payer MEDICARE, OTHER, SELFPAY | PROVIDERS: PCP Family Medicine; Visit Provider Internal Medicine Cardiovascular Disease | DX: I48.3 Typical atrial flutter (principal); Z79.82 Long term (current) use of aspirin; E78.5 Hyperlipidemia, unspecified | CPT/HCPCS: 99213 ==